=== PATIENT | female | born 1970 | race Caucasian/White ===

== ENCOUNTER 2022-12-31 06:18 | Emergency (ER) | payer MEDICAID, OTHER ==
[~2022-12-31] VITALS: Ht 158.8 cm; Wt 80.8 kg
[2022-12-31 06:26] VITALS: TEMP 98.6; O2SAT 99
[2022-12-31 07:13] LABS: BASOPHILS % 0.3 % (0.0-2.0); CHLORIDE 105 mEq/L (98-107); EOSINOPHILS % 0.6 % (0.0-5.0); HEMATOCRIT. 39.3 % (36.0-48.0); HEMOGLOBIN. 13.1 g/dL (12.0-16.0); LYMPHOCYTES % 7.4 % (20.0-50.0); MEAN CORPUSCULAR HEMOGLOBIN 27.7 pg (28.0-32.0); MEAN CORPUSCULAR VOLUME 82.9 fL (81.0-99.0); MONOCYTES % 4.3 % (2.0-8.0); NEUTROPHILS % 87.4 % (40.0-76.0); PLATELET 322 x1000/uL (130-400); RED BLOOD CELL COUNT 4.74 mill/uL (4.2-5.4); RED CELL DISTRIBUTION WIDTH 13.6 % (11.6-14.6)
[2022-12-31 08:06] LABS: HCG SCREEN NEGATIVE
[2022-12-31] MEDS ORDERED: ONDANSETRON HCL 4MG/2ML INJ IV STA (11:31)
[2022-12-31] MEDS ORDERED: KETOROLAC 30MG/ML VIAL IV STA (11:31)
[2022-12-31] MEDS ORDERED: SODIUM CHLORIDE 0.9% 1,000 ML IV ONE (11:45)
[2022-12-31 14:18] LABS: CLARITY URINE CLOUDY (CLEAR); COLOR URINE YELLOW (YELLOW); KETONES URINE 2+ (NEGATIVE); LEUKOCYTE ESTERASE URINE 2+ (NEGATIVE); NITRITE URINE POSITIVE (NEGATIVE); OCCULT BLOOD URINE NEGATIVE (NEGATIVE); PROTEIN URINE NEGATIVE (NEGATIVE); SPECIFIC GRAVITY URINE 1.017 (1.005-1.030); UROBILINOGEN URINE 0.2 E.U./dL (0.2-1.0)
[2022-12-31] MEDS ORDERED: METRONIDAZOLE 500 MG PREMIX 100 ML IV ONE (18:30)
[2022-12-31] MEDS ORDERED: CEFTRIAXONE 1GM PREMIX 50 ML IV ONE (18:30)
[2022-12-31 23:36] VITALS: BP 148/85; PULSE 104; RESP 22
== END 2023-01-01 00:44 | disposition short-term general hospital (02) ==
LOC: ER 06:18
DX: N70.93 Salpingitis and oophoritis, unspecified (principal)
CPT/HCPCS: 80053; 81003; 84703; 83690; 85025; 87086; 87186; 87077; 36415; 74176; 76830; 76856; 96367; 96361; 96365; 96375; 99285; J0696; J1885; J3490; J2405; J7030; Z7610